=== PATIENT | female | born 1990 | race Caucasian/White ===

== ENCOUNTER → 2017-12-14 | Outpatient (CLI) | payer OTHER ==
[2017-12-14 13:40] LABS: BASO # 0.1 10^3/uL (0.0-0.2); BASO % 0.4 % (0.0-1.0); EOS # 0.1 10^3/uL (0.0-0.50); EOS % 0.8 % (0.0-3.0); HEMATOCRIT 39.6 % (36.0-47.0); HEMOGLOBIN 13.2 g/dl (12.0-15.5); IMMATURE GRANULOCYTE % 0.3 % (0-3.0); LYMPH # 1.8 10^3/uL (1.5-6.5); LYMPH % 15.9 % (24.0-44.0); MEAN CORPUSCULAR HGB CONC 33.3 g/dl (32.0-36.5); MONO # 0.9 10^3/uL (0.0-0.8); MONO % 7.5 % (0.0-5.0); NEUTROPHILS # 8.7 10^3/uL (1.8-7.7); NEUTROPHILS % 75.1 % (36.0-66.0); PLATELET COUNT, AUTOMATED 325 10^3/uL (150-450); RED BLOOD COUNT 5.28 10^6/uL (4.00-5.40); RED CELL DISTRIBUTION WIDTH 18.1 % (11.5-14.5); WHITE BLOOD COUNT 11.5 10^3/uL (4.0-10.0)
[2017-12-14 14:21] LABS: RUBELLA IgG QUALITATIVE IMMUNE (IMMUNE)
[2017-12-14 14:22] LABS: HBsAg Prenatal NEGATIVE (NEGATIVE)
[2017-12-14 14:49] LABS: HEPATITIS C VIRUS ABY INDEX 0.3 INDEX (<0.8)
[2017-12-14 14:50] LABS: HIV 1&2 SCREEN CENTAUR NEGATIVE (NEGATIVE)
[2017-12-14 16:09] LABS: CHLAMYDIA DNA AMPLIFICATION POSITIVE (NEGATIVE); GC DNA AMPLIFICATION NEGATIVE (NEGATIVE)
== END ==
LOC: M SMT 08:39
DX: Z36.89 Encounter for other specified antenatal screening (principal); Z3A.09 9 weeks gestation of pregnancy
CPT/HCPCS: 86762

== ENCOUNTER → 2017-12-29 | Outpatient (REF) | payer OTHER | LOC: M SFHCCLAY 16:15 | DX: J02.9 Acute pharyngitis, unspecified (principal) | CPT/HCPCS: 87070 ==

== ENCOUNTER → 2018-01-12 | Outpatient (REF) | payer OTHER ==
[2018-01-12 16:02] LABS: CHLAMYDIA DNA AMPLIFICATION NEGATIVE (NEGATIVE); GC DNA AMPLIFICATION NEGATIVE (NEGATIVE)
== END ==
LOC: M LAB REF 13:39
DX: Z34.82 Encounter for supervision of other normal pregnancy, second trimester (principal)

== ENCOUNTER → 2018-03-01 | Outpatient (CLI) | payer OTHER | LOC: M RAD 15:38 | DX: Z34.82 Encounter for supervision of other normal pregnancy, second trimester (principal); Z36.89 Encounter for other specified antenatal screening; Z3A.20 20 weeks gestation of pregnancy | CPT/HCPCS: 76811 ==

== ENCOUNTER → 2018-03-22 | Outpatient (CLI) | payer OTHER | LOC: M RAD 08:27 | DX: Z34.02 Encounter for supervision of normal first pregnancy, second trimester (principal) ==

== ENCOUNTER → 2018-04-12 | Outpatient (CLI) | payer OTHER ==
[2018-04-12 13:26] LABS: GLUCOSE CHALLENGE TEST 1 HOUR 143 MG/DL (LESS THAN 140)
[2018-04-12 13:29] LABS: HEMATOCRIT 36.8 % (36.0-47.0); HEMOGLOBIN 12.2 g/dl (12.0-15.5); MEAN CORPUSCULAR HEMOGLOBIN 27.7 pg (27.0-33.0); MEAN CORPUSCULAR HGB CONC 33.2 g/dl (32.0-36.5); MEAN CORPUSCULAR VOLUME 83.4 fl (80.0-96.0); PLATELET COUNT, AUTOMATED 280 10^3/uL (150-450); RED BLOOD COUNT 4.41 10^6/uL (4.00-5.40); RED CELL DISTRIBUTION WIDTH 13.4 % (11.5-14.5)
[2018-04-17 10:47] LABS: RH ONLY RHOGAM 1 1
== END ==
LOC: M SMT 08:17
DX: Z36.89 Encounter for other specified antenatal screening (principal)
CPT/HCPCS: 82950

== ENCOUNTER → 2018-04-19 | Outpatient (CLI) | payer OTHER | LOC: M RAD 16:26 | DX: Z36.89 Encounter for other specified antenatal screening (principal); Z3A.26 26 weeks gestation of pregnancy | CPT/HCPCS: 76816 ==

== ENCOUNTER → 2018-04-24 | Outpatient (CLI) | payer OTHER ==
[2018-04-24 08:40] LABS: GLUCOSE, FASTING 89 MG/DL (LESS THAN 95)
[2018-04-24 09:47] LABS: 1 HR GLUCOSE 169 MG/DL (LESS THAN 180)
[2018-04-24 10:40] LABS: 2 HR GLUCOSE 135 MG/DL (LESS THAN 155)
[2018-04-24 11:39] LABS: 3 HR GLUCOSE 112 MG/DL (LESS THAN 140)
== END ==
LOC: M LAB 07:42
DX: R73.02 Impaired glucose tolerance (oral) (principal)
CPT/HCPCS: 82951

== ENCOUNTER → 2018-05-26 | Outpatient (CLI) | payer OTHER ==
--- NOTE | 2018-05-26 18:19 | REP ---
Obstetric sonography: History: Maternal hypertension. Findings: Scanning through the gravid uterus demonstrates a viable single intrauterine gestation in a cephalic lie. motion is observed and heart rate is recorded at 157 beats per minute. Fundal placenta is seen grade 3 without evidence of previa or abruption. Amniotic fluid is subjectively normal. Closed cervical length is viewed transabdominally at 5 cm. No extrauterine abnormalities observed. There has been less than expected interval growth. Umbilical cord is seen draping across the neck posteriorly. No anomalies seen. The following anatomic structures are again identified and felt to be unremarkable: cranium, choroid plexus, cavum, cerebellum and posterior fossa, four-chamber heart, diaphragm, left-sided stomach, kidneys and bladder, spine. Biometry chart: BPD 8.3 cm 33 weeks 2 days Head circumference 29.2 cm 32 weeks 1 day Abdominal circumference 25.8 cm 30 weeks 0 days Femur length 6.1 cm 31 weeks 5 days Humeral length 5.5 cm 31 weeks 5 days HC/AC ratio normal 1.13, cephalic index normal 0.81, estimated weight 1684 grams, 3 pounds 11 ounces, 8th percentile for 33 weeks 0 days. heart rate 157 beats per minute. RENO 13.9 cm. SD ratio in the umbilical cord artery by Doppler borderline 3.06 (2.00-3.00). Impression: Viable single intrauterine gestation at 31-week 6 days by today's composite sonographic criteria. Expected gestational age estimate based on prior sonography is 32 weeks 3 days. Slightly less than expected interval growth. 8th percentile for estimated weight. Borderline SD ratio. Consider follow-up. Electronically Signed by Eddi Metzger MD 05/26/2018 07:28 P
== END ==
LOC: M RAD 13:05
PROVIDERS: ATTEND Advanced Practice Midwife
DX: Z34.83 Encounter for supervision of other normal pregnancy, third trimester (principal); Z3A.31 31 weeks gestation of pregnancy

== ENCOUNTER 2018-05-31 09:40 | Outpatient (CLI) | payer OTHER ==
[~2018-05-31] VITALS: Ht 157.5 cm; Wt 100.3 kg
[2018-05-31 10:06] VITALS: BP 131/87
[2018-05-31] MEDS ORDERED: BETAMETHASONE SOLUSPAN 6MG/ML INJ 5ML (J0702) IM SCH (10:45)
[2018-05-31 11:15] VITALS: BP 131/82
--- NOTE | 2018-05-31 11:16 | REP ---
Obstetric sonography: History: IUGR. Limited study. Findings: Scanning through the gravid uterus demonstrates a single living intrauterine gestation in a cephalic lie. Placenta is fundal grade 3 without evidence of previa or abruption. Closed cervical length measured transabdominally is 4.2 cm. heart rate is recorder 138 beats per minute. Amniotic fluid is subjectively normal. RENO is normal at 23.0 cm (8.2-24.7 cm). Biophysical profile score is eight out of a possible eight. SD ratio in the umbilical cord artery by Doppler is normal at 2.84. The umbilical cord is seen draping across the shoulders. Electronically Signed by Eddi Metzger MD 05/31/2018 11:09 A
[2018-05-31 12:29] VITALS: BP 126/71
[2018-05-31 13:53] VITALS: BP 137/67
--- NOTE | 2018-05-31 15:07 | IPN ---
DATE: 05/31/2018 Jacqueline is a 28-year-old 1, para 0 at 33-5/7 weeks gestation with an estimated date of confinement (EDC) of 07/14/2018 based on last menstrual period and confirmed by first trimester ultrasound. She presents to labor and delivery today following routine visit for NST, which was found to be nonreactive. She denies headaches, visual disturbances, epigastric pain and right upper quadrant discomfort. She denies vaginal bleeding, leakage of fluid, regular contractions, and she does report the fetus has been active. Her care was initiated at [facility] in the first trimester. course complicated by onset of gestational hypertension. She has been undergoing antepartum testing, thus today's nonreactive NST. She had a most recent ultrasound on 05/26/2018 with estimated weight of 1684 grams, in the 8th percentile with an amniotic fluid index of 13.9 cm, SD ratio of the umbilical cord artery was 3.06, which was borderline elevated, normal is 2.00-3.00. OBSTETRICAL HISTORY: Primigravida. OBSTETRICAL LABORATORIES: Blood type A negative, antibody screen negative, rubella immune, VDRL nonreactive. Urine culture no growth. Hep B surface antigen negative, HIV negative. Hep C nonreactive. She had a positive chlamydia upon initial labs. Gonorrhea was negative. She did have a repeat gonorrhea and chlamydia and they were both negative on January 12, 2018.She declined genetic serum screening markers. Gestational diabetic screening abnormal at 143, 3-hour glucose tolerance test normal with fasting 89, 1-hour 169, 2-hour 135, 3-hour 112. Her pre-eclamptic profile returned normal laboratories. Spot urine was in normal range. PAST MEDICAL HISTORY: Asthma, no medications since high school. SURGERIES: Tonsillectomy. FAMILY HISTORY: Heart disease, hypertension and diabetes. SOCIAL HISTORY: The patient is . She is a nonsmoker. She denies alcohol and drug use. Denies history of abuse -- physical, sexual and emotional. As I said, a positive history of chlamydia early in her with test of cure negative. ALLERGIES: TESSALON PERLES. CURRENT MEDICATIONS: vitamins, Zofran as needed OBJECTIVE: Temperature 98.5, pulse 86, respirations 16, blood pressures all have been in the normotensive range, 137/67 is the most recent blood pressure. heart rate at this time is 130 with moderate variability, positive accelerations, no decelerations. There is occasional contraction. She did undergo BPP after arrival to labor and delivery, which demonstrates a fetus in cephalic lie, the RENO is 23.0 cm today. Her BPP is 8/8 with SD ratio in the normal range, the umbilical cord is 2.84. Sterile vaginal exam deferred at this time. She did receive her initial betamethasone injection upon arrival to labor and delivery. ASSESSMENT: 1. Intrauterine at 33-5/7. heart rate category 1. BPP 8 out of 8. 2. Gestational hypertension. 3. Potential for intrauterine growth restriction. PLAN: The plan is to discharge to home at this point. She is to return to labor and delivery tomorrow for her second betamethasone injection. She is to start weekly BPP, twice weekly cord Dopplers and growth ultrasounds every 2 weeks. The plan will likely be induction at 37 weeks. I did review signs and symptoms of labor, kick counts and worsening signs to report to her provider. I reviewed access to care. The patient and her mother have had all of their questions answered and are agreeable to this plan of care. CRISPIN
== END 2018-05-31 14:44 | disposition home or self-care (01) ==
LOC: M LDO 09:40
PROVIDERS: ATTEND Advanced Practice Midwife
DX: O09.93 Supervision of high risk pregnancy, unspecified, third trimester (principal); O16.3 Unspecified maternal hypertension, third trimester; O99.513 Diseases of the respiratory system complicating pregnancy, third trimester; J45.909 Unspecified asthma, uncomplicated; Z3A.33 33 weeks gestation of pregnancy
CPT/HCPCS: 59025; 76815; 76819; 76820; 87086; 96372; G0378; G0463; J0702

== ENCOUNTER 2018-06-01 12:14 | Outpatient (CLI) | payer OTHER ==
[2018-06-01] VITALS (7 sets, daily range): BP systolic 116–145; BP diastolic 63–94
[~2018-06-01] VITALS: Ht 157.5 cm; Wt 100.1 kg
[2018-06-01] MEDS ORDERED: BETAMETHASONE SOLUSPAN 6MG/ML INJ 5ML (J0702) IM ONE (13:15)
--- NOTE | 2018-06-01 14:22 | NUR ---
Progress Note Pt returns to L&D for her second BMTZ injection. Denies any ANGELES, visual changes, RUQ pain, sob, cp. +FM. Denies VB/LOF/uctx. Undergoing antepartum testing for GHTN, and growth restriction. Pt at risk for delivery becoming indicated, which is why she is having BMTZ administered. Currently normotensive (rare mild range BP), normal HR, afebrile Abd: soft,nt,nd, fundal ht c/w/d EFM: Reactive, normal baseline, mod roney, no decels [place]: uterine ctxs not detected. A/P: 28yo G1 at 33+6 weeks. GHTN. growth restriction. BMTZ given. Currently, maternal and status are reassuring. -RTO as scheduled; weekly antepartum testing is scheduled. -Pre-e/third trimester precautions reviewed. Shavonne Gonzales DO FACOG
== END 2018-06-01 14:08 | disposition home or self-care (01) ==
LOC: M LDO 12:14
PROVIDERS: ATTEND Obstetrics & Gynecology
DX: O09.893 Supervision of other high risk pregnancies, third trimester (principal); O16.3 Unspecified maternal hypertension, third trimester; Z3A.33 33 weeks gestation of pregnancy
CPT/HCPCS: 59025; 96372; G0378; G0463; J0702

== ENCOUNTER → 2018-06-05 | Outpatient (CLI) | payer OTHER ==
--- NOTE | 2018-06-05 07:47 | REP ---
Clinical: well-being evaluation. Comparison: 05/31/2018 . Findings: Examination demonstrates a single live intrauterine in breech presentation. motion is identified by technologist. Placenta is noted posterior fundal and grade III without evidence for placenta previa or abruption. Amniotic fluid volume is normal. Cervix appears closed. No evidence for nuchal cord. Gestational age by LMP 34 weeks 3 days with MEMO 07/14/2018 . FHR equals 147 beats per minute. Biophysical profile score equals 8/8 Amniotic fluid index equals 9.6 ( 8.0 - 24.8) Umbilical cord SD ratio: 2.37 (2.00 - 3.00) MCA resistive index equals 0.82. Impression: Single live intrauterine in breech presentation. Biophysical profile score equals 8/8 Electronically Signed by Lopez Werner MD 06/05/2018 07:38 A
== END ==
LOC: M RAD 06:39
PROVIDERS: ATTEND Advanced Practice Midwife
DX: O36.5930 Maternal care for other known or suspected poor fetal growth, third trimester, not applicable or unspecified (principal); O13.3 Gestational [pregnancy-induced] hypertension without significant proteinuria, third trimester; Z3A.34 34 weeks gestation of pregnancy

== ENCOUNTER → 2018-06-08 | Outpatient (CLI) | payer OTHER ==
--- NOTE | 2018-06-09 02:59 | REP ---
Clinical: well-being and growth Comparison: 06/05/2018, 05/31/2018 . Findings: Examination demonstrates a single live intrauterine in cephalic presentation. motion is identified by technologist. Placenta is noted right fundal and grade III without evidence for placenta previa or abruption. Amniotic fluid volume is normal. Cervix measures 3.9 cm in length and appears closed. Nuchal cord cannot be excluded. Gestational age by LMP 34 weeks 6 day with MEMO 07/14/2018 . Gestational age by current measurements 33 weeks 0 days with MEMO 07/27/2018 . FHR equals 146 beats per minute. Estimated weight 2098 grams (15th percentile based on age by LMP). Amniotic fluid index: 12.3 cm (7.9 - 24.9) Umbilical cord SD ratio: 3.45 (2.00 - 3.00). Impression: 1. Single live intrauterine in cephalic presentation growth is less than expected by falls within normal range for age by LMP. 2. Nuchal cord cannot be excluded. Electronically Signed by Lopez Wrener MD 06/09/2018 02:51 A
== END ==
LOC: M RAD 16:06
PROVIDERS: ATTEND Advanced Practice Midwife
DX: O13.3 Gestational [pregnancy-induced] hypertension without significant proteinuria, third trimester (principal); O36.5933 Maternal care for other known or suspected poor fetal growth, third trimester, fetus 3; Z3A.34 34 weeks gestation of pregnancy

== ENCOUNTER → 2018-06-15 | Outpatient (CLI) | payer OTHER ==
--- NOTE | 2018-06-15 07:50 | REP ---
Clinical: Hypertension Comparison: 06/08/2018 . Findings: Examination demonstrates an advanced single live intrauterine in cephalic presentation. motion is identified by technologist. Placenta is noted posterior and grade III without evidence for placenta previa or abruption. Amniotic fluid volume is normal. Cervix appears closed. No evidence for nuchal cord. Gestational age by LMP 35 weeks 6 days with MEMO 07/14/2018 . FHR equals 136 beats per minute. BPP: 8/8 Amniotic fluid index: 16.9 cm. Umbilical cord SD ratio: 2.20 (2.00 - 3.00) Impression: Single live advanced gestation in cephalic presentation. Biophysical profile score and amniotic fluid volume are normal. Electronically Signed by Lopez Werner MD 06/15/2018 07:41 A
== END ==
LOC: M RAD 06:32
PROVIDERS: ATTEND Advanced Practice Midwife
DX: O13.3 Gestational [pregnancy-induced] hypertension without significant proteinuria, third trimester (principal); Z3A.35 35 weeks gestation of pregnancy

== ENCOUNTER → 2018-06-16 | Outpatient (REF) | payer OTHER | LOC: M LAB REF 10:00 | PROVIDERS: ATTEND Advanced Practice Midwife | DX: Z34.81 Encounter for supervision of other normal pregnancy, first trimester (principal) ==

== ENCOUNTER → 2018-06-21 | Outpatient (CLI) | payer OTHER ==
[~2018-06-21] MED LIST: COLA100C5 PO; IBUP-1114 PO; IBUP1TAB7 PO; MOM30SS PO; OXYC1TAB23 PO; PERCOCET PO; PRENTAB9 PO
--- NOTE | 2018-06-21 15:03 | REP ---
OB ULTRASOUND AND BIOPHYSICAL PROFILE: Real-time sonographic evaluation of the gravid uterus is performed. There is a single living intrauterine gestation. Estimated gestational age 36 weeks 5 days, EDC 07/14/2018. heart rate 153 beats per minute. Amniotic fluid within normal limits, RENO 16.8, within normal range of 7.6 to 24.6. Biophysical profile score 8/8. S/D ratio 2.31, within normal range. RI 0.57, slightly below normal range of 0.59 to 0.75. position vertex. Placenta posterior and fundal, grade 2 to 3 with no previa or abruption. Electronically Signed by Ben Nelson MD 06/22/2018 10:45 A
== END ==
LOC: M RAD 14:03
PROVIDERS: ATTEND Advanced Practice Midwife
DX: O13.3 Gestational [pregnancy-induced] hypertension without significant proteinuria, third trimester (principal); Z3A.36 36 weeks gestation of pregnancy

== ENCOUNTER 2018-06-23 09:34 | Inpatient (IN) | payer OTHER ==
[2018-06-23] VITALS (7 sets, daily range): BP systolic 104–143; BP diastolic 52–83
[~2018-06-23] VITALS: Ht 157.5 cm; Wt 101.6 kg
[2018-06-23] MEDS ORDERED: LACTATED RINGER'S 1000 ML IV STA (10:10)
--- NOTE | 2018-06-23 11:05 | HPEPDOC ---
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 BREAST: . ABDOMEN: Gravid and non-tender to touch. FETUS: Is vertex (VTX) by sterile vaginal examination (SVE), fetus is vertex (VTX) by Ron. HEART RATE: Regular rate and rhythm. LUNGS: Clear to auscultation (CTA). EXTREMITIES: No edema. No clonus. Deep tendon reflexes (DTRs) + 2. Laboratory Data 24H LABS Laboratory Tests 2 06/23/18 09:45: Serology Scanned Report Hepatitis B Testing Pertinent Laboratoy Data Blood Type: A- RBC Antibody Screen: Negative HIV: Negative Hepatitis B: Negative Hepatitis C: Negative Rapid Plasma Reagin: Nonreactive Rubella: Immune Chlamydia/Gonorrhea: Negative Group B Streptococcus: Negative Quad Screen Test: Declined Glucose Tolerance Test: 143 (3hr 89/169/135/112) Anatomy Ultrasound Ultrasound Date: Mar 01, 2018 Placenta Location: Posterior Normal Anatomy: Yes Placenta Previa: No Estimated Weight (grams): 345 (33%) Other Ultrasounds 12/14/17 dating 8w6d 03/22/18 f/u growth 8% EFW 498gm 04/19/18 f/u growth 23% 999gm 05/26/18 f/u growth 8% 1684gm S/D 3.06 05/31/18 BPP 8/8 FI 23.0 S/D 2.84 06/05/18 BPP 8/8 RENO 9.6 S/D 2.84 06/08/18 Growth 15% 2098gm RENO 12.3 S/D 3.45 06/15/18 BPP 8/8 RENO 6.9 S/D 2.20 Steroid Therapy Steroid Therapy: No Vaginal Examination Dilation: Fingertip (-1) Effacement: 50% Station: -2 Cervical Consistency: Medium Cervical Position: Middle Presentation: Cephalic presentation Assessment Heart Rate (FHR): 145 Variability: Moderate Accelerations: Positive Decelerations: None Tocometer Contractions: No Assessment/Plan Assessment Jacqueline is a 28-year-old (G)1 para (P)0-0-0-0 at 37+0 weeks by 8-week ultrasound. Presents to Labor and Delivery (L&D) for IOL due to gestational HTN with IUGR noted during the . Denies LOF, bleeding or regular UC. Fetus is active Plan Admit and orient per consult Dr Woods Food And Nutrition Supervisor and consent. Diet: Regular Group B Streptococcus (GBS) negative. Labs and intravenous (IV) per unit protocol. Counseled on misoprostol, Pitocin and induction of labor (IOL). Lactated Ringers (LR): Bolus 500 mL, then saline lock. Pt plans to labor ad keli Anticipate normal spontaneous delivery (). C-S as appropriate. Meeta Salcido CNM Jun 23, 2018 11:05
[2018-06-23] MEDS: miSOPROStol 50 MCG 1/2 TAB (S0191) PO SCH ×2 (12:10→16:35)
[2018-06-23 12:18] LABS: HEMATOCRIT 38.4 % (36.0-47.0); HEMOGLOBIN 12.5 g/dl (12.0-15.5); MEAN CORPUSCULAR HEMOGLOBIN 25.1 pg (27.0-33.0); MEAN CORPUSCULAR HGB CONC 32.6 g/dl (32.0-36.5); MEAN CORPUSCULAR VOLUME 77.1 fl (80.0-96.0); PLATELET COUNT, AUTOMATED 306 10^3/uL (150-450); RED BLOOD COUNT 4.98 10^6/uL (4.00-5.40); WHITE BLOOD COUNT 13.8 10^3/uL (4.0-10.0)
[2018-06-23 12:33] LABS: TOTAL PROTEIN,RANDOM URINE 31.2 MG/DL (0.0-12.0)
[2018-06-23 12:40] LABS: ALT/SGPT 25 U/L (12-78); BILIRUBIN,TOTAL 0.1 MG/DL (0.2-1.0); CREATININE FOR GFR 0.42 MG/DL (0.55-1.30); GLOMERULAR FILTRATION RATE > 60.0 (>60); LDH LACTATE DEHYDROGENASE 180 U/L (84-246); URIC ACID 2.9 MG/DL (2.6-6.0)
[2018-06-23] MEDS ORDERED: PRENTAB9 PO (13:02)
--- NOTE | 2018-06-23 19:23 | IPNPDOC ---
Text Note Date of Service The patient was seen on 06/23/18. NOTE FH episodes of Cat I intermixed with Cat II Feels cramping, no regular UC SVE unchanged Will discontinue misoprostol and initiate Cooks catheter with pitocin augmentation after 2030. VS,Fishbone, I+O VS, Fishbone, I+O Laboratory Tests 06/23/18 12:05 Red Blood Count 4.98, Mean Corpuscular Volume 77.1 L, Mean Corpuscular Hemoglobin 25.1 L, Mean Corpuscular Hemoglobin Concent 32.6, Red Cell Distribution Width 15.7 H, Aspartate Amino Transf (AST/SGOT) 18, Alanine Aminotransferase (ALT/SGPT) 25, Lactate Dehydrogenase 180, Total Bilirubin 0.1 L, Uric Acid 2.9 Meeta Salcido CNM Jun 23, 2018 19:22
[2018-06-23] MEDS ORDERED: BUTORPHANOL 2 MG/ML INJ (J0595) IV ONE (21:00)
[2018-06-23] MEDS ORDERED: OXYTOCIN DRIP 30 UNITS in APPROPRIATE DILUENT 1 EA IV SCH (21:00)
[2018-06-23] MEDS ORDERED: PROMETHAZINE INJ 25 MG/ML VIAL (J2550) IV ONE (21:00)
--- NOTE | 2018-06-23 21:03 | IPNPDOC ---
Text Note Date of Service The patient was seen on 06/23/18. NOTE Cervix unchanged Cat I tracing, no UC Cooks catheter placed, inflated with 60/40cc NS Lo dose pitocin overnight to be increased in am VS,Fishbone, I+O VS, Fishbone, I+O Laboratory Tests 06/23/18 12:05 Red Blood Count 4.98, Mean Corpuscular Volume 77.1 L, Mean Corpuscular Hemoglobin 25.1 L, Mean Corpuscular Hemoglobin Concent 32.6, Red Cell Distribution Width 15.7 H, Aspartate Amino Transf (AST/SGOT) 18, Alanine Aminotransferase (ALT/SGPT) 25, Lactate Dehydrogenase 180, Total Bilirubin 0.1 L, Uric Acid 2.9 Meeta Salcido CNM Jun 23, 2018 21:02
[2018-06-24] VITALS (53 sets, daily range): BP systolic 95–147; BP diastolic 46–86
[2018-06-24] MEDS: LR 1,000 ML IV SCH ×3 (00:10→10:13)
[2018-06-24] MEDS ORDERED: FENTANYL 2MCG/ML ROPIVACAINE 0.2% IN 0.9% NACL 100ML IVBAG As Ordered ONE (02:21)
[2018-06-24] MEDS ORDERED: NALOXONE INJ 0.4 MG/1 ML VIAL (J2310) IV PRN ×3 (02:50→15:15)
[2018-06-24] MEDS ORDERED: diphenhydrAMINE INJ 50MG/ML VIAL (J1200) IV PRN ×2 (02:50→15:15)
[2018-06-24] MEDS ORDERED: LACTATED RINGER'S 1000 ML IV PRN (02:50)
[2018-06-24] MEDS ORDERED: EPIDURAL COMMENT XX SCH (02:50)
[2018-06-24] MEDS ORDERED: ONDANSETRON 4MG/2ML VIAL (J2405) IV PRN ×4 (02:50→16:00)
[2018-06-24] MEDS ORDERED: REFRIGERATOR IV KEYS XX PRN (02:50)
[2018-06-24] MEDS ORDERED: EPIDURAL/PCA KEYS XX PRN (02:50)
[2018-06-24] MEDS: FENTANYL/ROPIVACAINE/NACL BAG 100 ML EPIDURAL SCH ×2 (03:12→10:22)
[2018-06-24] MEDS ORDERED: ePHEDrine SULFATE 25 MG/5 ML(5MG/ML) SYRINGE As Ordered ONE (04:02)
[2018-06-24] MEDS: ePHEDrine SULFATE 25 MG/5 ML(5MG/ML) SYRINGE IV PRN ×2 (04:03→04:22)
--- NOTE | 2018-06-24 04:56 | IPNPDOC ---
Text Note Date of Service The patient was seen on 06/24/18. NOTE Spontaneous expulsion of Cooks Catheter @ 0211. Requested epidural immediately following. FH decelerations following epidural dosing treated with ephedrine Now 150, minimal/moderate variability UC irregular, difficult to trace SVE 4+/80/-2, anterior Will increase pitocin at this time VS,Fishbone, I+O VS, Fishbone, I+O Laboratory Tests 06/23/18 12:05 Red Blood Count 4.98, Mean Corpuscular Volume 77.1 L, Mean Corpuscular Hemoglobi n 25.1 L, Mean Corpuscular Hemoglobin Concent 32.6, Red Cell Distribution Width 15.7 H, Aspartate Amino Transf (AST/SGOT) 18, Alanine Aminotransferase (ALT/SGPT) 25, Lactate Dehydrogenase 180, Total Bilirubin 0.1 L, Uric Acid 2.9 Vital Signs Date Time Temp Pulse Resp B/P (MAP) Pulse Ox O2 Delivery O2 Flow Rate FiO2 06/24/18 02:43 98.2 86 18 132/73 (92) I&O- Last 24 Hours up to 6 AM 06/24/18 06:00 Intake Total 1000 ml Output Total 330 ml Balance 670 ml Meeta Salcido CNM Jun 24, 2018 04:56
[2018-06-24 08:19] LABS: HEMATOCRIT 33.7 % (36.0-47.0); HEMOGLOBIN 10.9 g/dl (12.0-15.5); MEAN CORPUSCULAR HEMOGLOBIN 25.3 pg (27.0-33.0); MEAN CORPUSCULAR HGB CONC 32.3 g/dl (32.0-36.5); MEAN CORPUSCULAR VOLUME 78.4 fl (80.0-96.0); PLATELET COUNT, AUTOMATED 255 10^3/uL (150-450); WHITE BLOOD COUNT 17.2 10^3/uL (4.0-10.0)
--- NOTE | 2018-06-24 12:02 | NUR ---
L&D Note: S: comfortable after epidural O: vss, AF cat 1 tracing, pitocin at 10mU gen: well appearing cx; /-3,AROM clear A/P: IOL IUGR/GHTN- currently stable -reassuring status -will recheck in 4hrs Judith Woods MD
[2018-06-24] MEDS ORDERED: BICITRA 30ML SOLN UDC PO ONE (14:30)
[2018-06-24] MEDS ORDERED: OXYTOCIN INJ 10 UNITS/ML VIAL (J2590) As Ordered ONE (14:54)
[2018-06-24] MEDS ORDERED: KETOROLAC 60 MG/2 ML VIAL (J1885) As Ordered ONE (14:54)
[2018-06-24] MEDS ORDERED: SODIUM BICARBONATE 8.4% INJ 50 ML SYRINGE As Ordered ONE (14:54)
[2018-06-24] MEDS ORDERED: LIDOCAINE 2% W/EPIN INJ 20ML **PRES FREE As Ordered ONE (14:54)
[2018-06-24] MEDS ORDERED: MORPHINE PRES-FREE INJ 10 MG/10 ML VIAL (J2274) As Ordered ONE (14:54)
[2018-06-24] MEDS ORDERED: ONDANSETRON 4MG/2ML VIAL (J2405) As Ordered ONE (14:54)
[2018-06-24] MEDS ORDERED: dexameTHASONE 4 MG/ML 1ML VIAL (J1100) As Ordered ONE (14:54)
[2018-06-24 15:13] LABS: CORD GAS HCO3 V 22.9 MEQ/L; CORD GAS PCO2 V 44.2 mmHg; CORD GAS PH V 7.333 UNITS; CORD GAS PO2 V 30.6 mmHg; CORD GAS SBC V 21.4 MEQ/L; CORD GAS TCO2 V 24.3 MEQ/L
[2018-06-24 15:14] LABS: CORD GAS ABE A -0.2; CORD GAS HCO3 A 27.9 MEQ/L; CORD GAS O2 SAT A 28.9 %; CORD GAS PCO2 A 59.7 mmHg; CORD GAS PH A 7.287 UNITS; CORD GAS PO2 A 15.4 mmHg; CORD GAS SBC A 22.6 MEQ/L; CORD GAS TCO2 A 29.7 MEQ/L
[2018-06-24] MEDS ORDERED: METOCLOPRAMIDE INJ 10MG/2ML VIAL (J2765) IV PRN (15:15)
[2018-06-24] MEDS ORDERED: NALBUPHINE HCL 10 MG/ML AMP (J2300) IV PRN (15:15)
--- NOTE | 2018-06-24 15:29 | NUR ---
L&D Note: vss, AF cat II-III tracing, pitocin off gen: well appearing cx; /-3, unchange A/P: IOL IUGR/GHTN- currently stable -inability to augment labor -Plan to proceed with 1LTCS for inability to augment labor Judith Woods MD
[2018-06-24] MEDS ORDERED: RHOGAM 300 MCG (1500 IU) INJ (J2790) IM SCH (15:45)
[2018-06-24] MEDS ORDERED: MEASLES,MUMPS,RUBELLA VACCINE INJ (MMR-II) (90707) SC SCH (15:45)
[2018-06-24] MEDS ORDERED: MOM 30ML SUSPENSION UDC PO PRN (15:45)
[2018-06-24] MEDS ORDERED: fentaNYL 100 MCG/2 ML INJECTION (J3010) IV PRN (16:00)
[2018-06-24] MEDS ORDERED: OXYTOCIN DRIP 30 UNITS in APPROPRIATE DILUENT 1 EA IV SCH (16:00)
[2018-06-24] MEDS ORDERED: LR 1,000 ML IV SCH ×2 (16:00→16:15)
[2018-06-24] MEDS ORDERED: MORPHINE 10 MG/ML 1ML VIAL (J2270) IV PRN (16:00)
[2018-06-24] MEDS ORDERED: OXYTOCIN 30 UNITS IN 0.9% NaCl 500ML IV BAG (J2590) As Ordered ONE (16:10)
[2018-06-24] MEDS: KETOROLAC 30 MG/ML VIAL (J1885) IV SCH (21:08)
[2018-06-24] MEDS: DOCUSATE SODIUM 100 MG CAP PO SCH (21:08)
[2018-06-25 02:17] VITALS: BP 127/72
[2018-06-25] MEDS: KETOROLAC 30 MG/ML VIAL (J1885) IV SCH ×2 (03:06→09:00)
[2018-06-25 06:00] VITALS: BP 132/77
[2018-06-25 06:48] LABS: HEMATOCRIT 31.7 % (36.0-47.0); HEMOGLOBIN 10.2 g/dl (12.0-15.5); MEAN CORPUSCULAR HEMOGLOBIN 25.4 pg (27.0-33.0); MEAN CORPUSCULAR HGB CONC 32.2 g/dl (32.0-36.5); MEAN CORPUSCULAR VOLUME 78.9 fl (80.0-96.0); PLATELET COUNT, AUTOMATED 234 10^3/uL (150-450); RED BLOOD COUNT 4.02 10^6/uL (4.00-5.40); WHITE BLOOD COUNT 16.6 10^3/uL (4.0-10.0)
--- NOTE | 2018-06-25 07:24 | RO ---
DATE OF PROCEDURE: 06/24/2018 PREPROCEDURE DIAGNOSES: 1. Inability to augment labor. 2. Intrauterine growth restriction. POSTPROCEDURE DIAGNOSES: 1. Inability to augment labor. 2. Intrauterine growth restriction. PROCEDURE: Primary low transverse section. SURGEON: Dr. Judith Woods. SCABBLER: Yrn Alvarado D.O. ANESTHESIA: Epidural ESTIMATED BLOOD LOSS: 600 mL INTRAVENOUS FLUIDS: 1 Liter lactated Ringer's solution. URINE OUTPUT: 100 mL. PREOPERATIVE ANTIBIOTICS: 2 grams of Ancef. OPERATIVE FINDINGS: Live born , Apgars 8 and 9, weight 2260 grams or 5 pounds. SPECIMEN: Cord blood, cord gases and placenta. DESCRIPTION OF PROCEDURE: After informed consent was obtained and written consent was reviewed, the patient was brought to the operating room where she was placed in the supine position with a left lateral tilt. A Beckham catheter had previously been placed and set to gravity. She was prepped and draped in a normal sterile fashion. A time out in the operating room was then performed and identified with the patient, procedure to be performed as well as drug allergies. Anesthesia was tested and deemed to be adequate. A Pfannenstiel skin incision was then made and carried down the underlying rectus fascia. The fascia was then scored and this incision was extended bilaterally. The fascia was then dissected off the underlying rectus muscles both superiorly and inferiorly. The rectus muscles were in the midline. The peritoneum was then entered. The vesicouterine peritoneum was then identified, was tented and excised to create a bladder flap. The bladder blade was then placed to retract back the bladder. A curvilinear incision was then made and this incision was extended. The head was then brought to the level of the incision atraumatically and the delivered followed by shoulders and corpus. Cord was clamped times two and was cut and the was taken over to the warmer with good cry. Cord gases and blood was obtained. Placenta was then delivered grossly intact. The uterus then exteriorized cleared of all clots and debris. The uterine incision was then closed in two layers using 0 Vicryl first in a running nonlocking fashion followed by a second layer for imbrication in a running nonlocking fashion. The abdomen was then suctioned. The uterus was returned to the patient's abdomen and was re-inspected and noted to be hemostatic. The anterior peritoneum was then reapproximated with #3-0 Vicryl. The rectus muscles re-approximated with #3-0 Vicryl. The fascia was then closed with 0 Vicryl in a running nonlocking fashion. Subcutaneous tissue was then irrigated and suctioned. The subcutaneous tissue was reapproximated with #3-0 Vicryl and the skin was then closed with #4-0 Monocryl in a subcuticular fashion. The incision was then cleaned and dried and was dressed. The patient was then taken to the recovery room in stable condition. Counts were correct. Dr. Alvarado, my surgical specialist played a essential role during the surgery in tissue identification and retraction and delivery of the as well as wound closure.
--- NOTE | 2018-06-25 08:14 | NUR ---
POD#1 S: Doing well w/o complaints. Tolerating diet, voiding, ambulating and pain well controlled. O: vss, AF gen: well appearing abd: soft, appropriately tender incision: dress ext: neg calf tenderness A/P: POD #1 s/p 1LTCS - recovering in stable -cont routine care Judith Woods MD
[2018-06-25] MEDS: DOCUSATE SODIUM 100 MG CAP PO SCH ×2 (08:45→21:11)
[2018-06-25] MEDS: PRENATAL VITAMINS CHEWABLE TABLET PO SCH (08:45)
[2018-06-25 10:00] VITALS: BP 116/60
[2018-06-25 14:00] VITALS: BP 109/62
[2018-06-25] MEDS: PERCOCET 5MG/325MG TAB PO PRN ×2 (14:22→22:48)
[2018-06-25] MEDS: IBUPROFEN 800 MG TAB PO SCH (17:28)
[2018-06-25 18:00] VITALS: BP 111/64
[2018-06-25 22:04] VITALS: BP 110/67
[2018-06-26] MEDS: IBUPROFEN 800 MG TAB PO SCH ×2 (00:22→09:42)
[2018-06-26 02:13] VITALS: BP 115/58
[2018-06-26] MEDS: PERCOCET 5MG/325MG TAB PO PRN ×2 (05:50→09:47)
[2018-06-26 05:57] VITALS: BP 114/62
[2018-06-26] MEDS: DOCUSATE SODIUM 100 MG CAP PO SCH (09:42)
[2018-06-26] MEDS: PRENATAL VITAMINS CHEWABLE TABLET PO SCH (09:42)
[2018-06-26] MEDS ORDERED: MOM30SS PO (10:03)
[2018-06-26] MEDS ORDERED: COLA100C5 PO (10:03)
[2018-06-26] MEDS ORDERED: IBUP-1114 PO (10:03)
[2018-06-26] MEDS ORDERED: OXYC1TAB23 PO (10:03)
[2018-06-26] MEDS ORDERED: PERCOCET PO (11:20)
[2018-06-26] MEDS ORDERED: IBUP1TAB7 PO (11:21)
== END 2018-06-26 10:40 | disposition home or self-care (01) | DRG 788 ==
LOC: M LDI 09:34 → M OBS 06-24 16:58
PROVIDERS: ADMIT Advanced Practice Midwife; ATTEND Obstetrics & Gynecology
PROC: 3E0P7GC Introduction of Other Therapeutic Substance into Female Reproductive, Via Natural or Artificial Opening (ICD-10-PCS; 2018-06-23)
PROC: 10D00Z1 Extraction of Products of Conception, Low, Open Approach (ICD-10-PCS; principal; 2018-06-24 14:40)
DX: O13.3 Gestational [pregnancy-induced] hypertension without significant proteinuria, third trimester (principal); O36.5930 Maternal care for other known or suspected poor fetal growth, third trimester, not applicable or unspecified; Z3A.37 37 weeks gestation of pregnancy; O76 Abnormality in fetal heart rate and rhythm complicating labor and delivery; Z37.0 Single live birth

== ENCOUNTER → 2018-11-15 | Outpatient (REF) | payer OTHER | LOC: M LAB REF 18:32 | PROVIDERS: ATTEND Obstetrics & Gynecology | DX: Z12.4 Encounter for screening for malignant neoplasm of cervix (principal) ==

== ENCOUNTER → 2020-07-30 | Outpatient (REF) | payer OTHER ==
[2020-07-30 16:05] LABS: HEMATOCRIT 44.9 % (36.0-47.0); HEMOGLOBIN 15.1 g/dl (12.0-15.5); MEAN CORPUSCULAR HGB CONC 33.6 g/dl (32.0-36.5); MEAN CORPUSCULAR VOLUME 80.3 fl (80.0-96.0); PLATELET COUNT, AUTOMATED 362 10^3/uL (150-450); RED BLOOD COUNT 5.59 10^6/uL (4.00-5.40); WHITE BLOOD COUNT 8.9 10^3/uL (4.0-10.0)
[2020-07-30 16:38] LABS: FREE T4 1.15 NG/DL (0.76-1.46); THYROID STIMULATING HORMONE 1.55 uIU/ML (0.358-3.740)
[2020-07-30 17:28] LABS: PROLACTIN 7.8 NG/ML
== END ==
LOC: M PLALAB 14:35
PROVIDERS: ATTEND Advanced Practice Midwife
DX: N92.0 Excessive and frequent menstruation with regular cycle (principal)

== ENCOUNTER → 2020-08-14 | Outpatient (CLI) | payer OTHER ==
--- NOTE | 2020-08-14 13:25 | REP ---
INDICATION: N92.0 MENORRHAGIA WITH REGULAR CYCLE. COMPARISON: None. TECHNIQUE: Transabdominal and transvaginal scanning performed. FINDINGS: Uterine dimensions are 9.8 x 5.2 x 6 point cm. Endometrial echo is 7 mm in AP dimension and centrally placed. The bladder measures 8.6 x 5.6cm. The right ovary has dimensions of 4.7 x 3.8 x 4.2 cm. The left ovary dimensions are 2.3 x 2.0 x 1.3 cm. Blood flow seen in each ovary with duplex Doppler evaluation, with no torsion. There is a simple benign cyst of the right ovary 4.3 x 3.3 x 3.4 cm No free fluid is seen in the cul-de-sac. IMPRESSION: Endometrial thickness 7 mm. Simple benign cyst right ovary 4.3 cm. <Electronically signed by Ben Nelson > 08/14/20 [id number]
== END ==
LOC: M WHC 11:11
PROVIDERS: ATTEND Advanced Practice Midwife
DX: N92.0 Excessive and frequent menstruation with regular cycle (principal); N83.291 Other ovarian cyst, right side; N85.00 Endometrial hyperplasia, unspecified

== ENCOUNTER → 2020-10-17 | Outpatient (CLI) | payer OTHER ==
[~2020-10-17] MED LIST changes: +ACET32TAB PO; +MICR1TAB18 PO
== END ==
LOC: M LABSMTC 09:41
PROVIDERS: ATTEND Anesthesiology
DX: Z01.812 Encounter for preprocedural laboratory examination (principal); Z11.52 Encounter for screening for COVID-19

== ENCOUNTER 2020-10-22 05:59 | Day surgery (SDC) | payer OTHER ==
[2020-10-22] VITALS (7 sets, daily range): BP systolic 112–126; BP diastolic 62–78
[~2020-10-22] VITALS: Ht 157.5 cm; Wt 109.0 kg
[2020-10-22] MEDS ORDERED: LR 1,000 ML IV ONE (06:10)
[2020-10-22] MEDS ORDERED: CLINDAMYCIN 900 MG in IV 1 EA IV ONE (06:10)
[2020-10-22] MEDS ORDERED: CIPROFLOXACIN 400 MG in IV 1 EA IV ONE (06:10)
[2020-10-22 06:29] LABS: HEMOGLOBIN 14.6 g/dl (12.0-15.5); MEAN CORPUSCULAR HEMOGLOBIN 26.8 pg (27.0-33.0); MEAN CORPUSCULAR HGB CONC 33.2 g/dl (32.0-36.5); MEAN CORPUSCULAR VOLUME 80.9 fl (80.0-96.0); PLATELET COUNT, AUTOMATED 310 10^3/uL (150-450); RED BLOOD COUNT 5.44 10^6/uL (4.00-5.40); WHITE BLOOD COUNT 7.8 10^3/uL (4.0-10.0)
[2020-10-22] MEDS ORDERED: MIDAZOLAM INJ 2MG/2ML VIAL (J2250 PER 1MG) As Ordered ONE (07:04)
[2020-10-22] MEDS ORDERED: fentaNYL 100 MCG/2 ML INJECTION (J3010) As Ordered ONE (07:05)
[2020-10-22] MEDS ORDERED: ROCURONIUM BROMIDE 50 MG/5 ML VIAL As Ordered ONE ×2 (07:05→08:27)
[2020-10-22] MEDS ORDERED: LIDOCAINE 2% 100MG/5ML SDV (FOR ANES.) As Ordered ONE (07:06)
[2020-10-22] MEDS ORDERED: dexameTHASONE 4 MG/ML 1ML VIAL (J1100 PER 1MG) As Ordered ONE ×2 (07:07→07:57)
[2020-10-22] MEDS ORDERED: ONDANSETRON 4MG/2ML VIAL As Ordered ONE (07:08)
[2020-10-22] MEDS ORDERED: SUGAMMADEX SODIUM 500 MG/5 ML VIAL (BRIDION) As Ordered ONE ×2 (07:08→07:57)
[2020-10-22] MEDS ORDERED: BUPIVACAINE HCL 0.25% 30ML VIAL As Ordered ONE (07:13)
[2020-10-22] MEDS ORDERED: SCOPOLAMINE 1MG TRANSDERMAL PATCH TOP ONE (07:30)
--- NOTE | 2020-10-22 07:31 | ROOPDOC ---
[facility] Report Of Operation Report of Operation DATE OF PROCEDURE: 10/22/20 PREPROCEDURE DIAGNOSES: 1. Abnormal uterine bleeding. POSTPROCEDURE DIAGNOSES: 1. Abnormal uterine bleeding. PROCEDURES PERFORMED: 1. Robotic-assisted laparoscopic hysterectomy. 2. Bilateral salpingectomy. 3. Cystoscopy. SURGEON: Nicky Woods MD FINANCIAL SERVICES ASSOCIATE: HUGO Johnson ANESTHESIA: General endotracheal anesthesia. ESTIMATED BLOOD LOSS: 50 mL. INTRAVENOUS FLUIDS: 500mL lactated Ringer solution. URINE OUTPUT: 100mL. PREPROCEDURE ANTIBIOTICS: 100 mg of clindamycin and 400 mg of ciprofloxacin OPERATIVE FINDINGS: The patient with normal-appearing bilateral adnexa and uterus CYSTOSCOPIC FINDING: Normal bladder mucosa, no foreign objects. Bilateral ureteral jets were observed. SPECIMEN: Uterus, cervix, bilateral fallopian tubes DESCRIPTION OF PROCEDURE: After informed consent was obtained and written consent was reviewed, the patient was brought to the operating room, where general endotracheal anesthesia was obtained. She was then placed in lithotomy position, was prepped and draped in a normal sterile fashion. A time-out in the operating room was then performed, identifying the patient, procedure to be performed, as well as drug allergies. A speculum was then placed, revealing the cervix. The anterior and posterior aspects of the cervix were stitched with a 0 Vicryl. The uterus was then sounded to 11cm. A large [employer] uterine manipulator was then advanced through the cervical os for means to manipulate the uterus. The cervical cap was applied over the cervix, as well as the vaginal sleeve applied into the vagina. The speculum was removed from the patients vagina. A Beckham catheter was then placed and set to gravity. Gloves were changed, and attention was turned to the patients abdomen, where a Veress needle was placed through the umbilicus. A pneumoperitoneum was then obtained with CO2 gas. The supraumbilical area was infused with 0.25% Marcaine. An incision was made in this area, and a 8 mm trocar and sleeve was advanced through this incision. The laparoscope was then replaced, revealing intra-abdominal placement. Three additional port sites were placed, two to the left side of the patient's abdomen and one to the right. These areas was infused with 0.25% Marcaine. Each one of these areas, incisions were made, and 8 mm trocars and sleeves advanced through each one of these incisions under direct visualization. Next, the da Dominic was then docked, utilizing a camera arm and two operative arms. The patient's abdomen was then surveyed with the above-noted finding. Bilateral salpingectomies were then performed. The fallopian tubes' mesosalpinx was cauterized and ligated with hemostasis noted. Next, the uteroovarian ligaments bilateral were cauterized and ligated with good hemostasis noted. The round ligaments bilaterally were cauterized and ligated with good hemostasis noted. The anterior and posterior aspects of broad ligaments were . The anterior leaf of the broad ligament was cauterized and ligated and dissected along the bladder, creating a bladder flap. The remainder of the broad and cardinal ligaments were then cauterized and ligated with good hemostasis noted. The uterine arteries were skeletonized bilaterally and were cauterized and transected with good hemostasis noted. Anterior and posterior colpotomies were made using monopolar scissors. The uterus was then brought out through the vaginal incision. The surgical sites were inspected and noted to be hemostatic. The vaginal cuff was then closed using 2-0 V-Loc system in a running fashion. David was then applied over the surgical field. The pneumoperitoneum was then released. Next, the cystoscopy was then performed. Utilizing a 70-degree cystoscope, it was advanced transurethrally through the bladder. The bladder was surveyed, showing normal bladder mucosa, no foreign bodies. The bilateral ureteral jets were observed. The cystoscope was then removed. The bladder was then drained. Gloves were changed. Attention was then turned to the patients abdomen, where all four port sites were closed with 4-0 Monocryl and dressed with Dermabond. The patient was then taken out of lithotomy position and was awakened from general anesthesia and taken to recovery in stable condition. Counts were correct. Joelle Gordon, my surgical sales representative, played a central role in the operation. She assisted with port placement, tissue retraction and identification, as well as wound closure. NICKY WOODS MD. Oct 22, 2020 07:31
[2020-10-22] MEDS ORDERED: METOCLOPRAMIDE INJ 10MG/2ML VIAL (J2765 PER 1) As Ordered ONE (07:58)
[2020-10-22] MEDS ORDERED: propofoL 200 MG/20 ML VIAL As Ordered ONE (08:00)
[2020-10-22] MEDS ORDERED: HYDROmorphone HCL 2 MG/ML 1ML VIAL (J1170) As Ordered ONE (08:06)
[2020-10-22] MEDS ORDERED: ACETAMINOPHEN 1000MG 100ML IV BTL (OFIRMEV) (J0131 PER 10MG) As Ordered ONE (08:17)
[2020-10-22] MEDS ORDERED: KETOROLAC 60MG 2ML VIAL As Ordered ONE (08:30)
[2020-10-22] MEDS ORDERED: ONDANSETRON 4MG/2ML VIAL IV PRN (10:00)
[2020-10-22] MEDS ORDERED: fentaNYL 100 MCG/2 ML INJECTION (J3010) IV PRN (10:00)
[2020-10-22] MEDS ORDERED: LR 1,000 ML IV SCH ×2 (10:00→10:15)
[2020-10-22] MEDS ORDERED: oxyCODONE 5MG TAB PO PRN (10:00)
[2020-10-22] MEDS ORDERED: PERCOCET 5MG/325MG TAB PO PRN ×2 (10:05→10:10)
[2020-10-22] MEDS ORDERED: PROMETHAZINE INJ 25 MG/ML VIAL (J2550) IV PRN (10:15)
[2020-10-22] MEDS ORDERED: KETOROLAC 30 MG/ML 1ML VIAL IV SCH (15:00)
== END 2020-10-22 16:31 | disposition home or self-care (01) ==
LOC: M SDC 05:59 → M MSPAV 10:20 → M SDC 16:31
PROVIDERS: ATTEND Obstetrics & Gynecology
DX: N85.8 Other specified noninflammatory disorders of uterus (principal); N93.8 Other specified abnormal uterine and vaginal bleeding; K21.9 Gastro-esophageal reflux disease without esophagitis; R51.9 Headache, unspecified; J45.909 Unspecified asthma, uncomplicated; Z88.8 Allergy status to other drugs, medicaments and biological substances; Z79.3 Long term (current) use of hormonal contraceptives
CPT/HCPCS: 36415; 58552; 81025; 85027; 86850; 86900; 86901; 88307; 96374; J0131; J0744; J1100; J1170; J1885; J2250; J2405; J2765; J3010; S2900